=== PATIENT | female | born 2000 | race Two or more races ===

== ENCOUNTER 2023-03-27 12:21 | Emergency (ER) | payer OTHER ==
[~2023-03-27] VITALS: Ht 170.2 cm; Wt 89.8 kg
[2023-03-27 13:43] LABS: HEMATOCRIT 40.7 % (36.0-45.00); HEMOGLOBIN 13.4 g/dL (12.0-15.00); MEAN CELL VOLUME 79.7 fL (80.00-100.00); MEAN CORPUSCULAR HEMOGLOBIN 26.2 pg (27.00-32.0); MEAN CORPUSCULAR HGB CONC 32.9 g/dl (32.0-36.0); PLATELET COUNT 264 K/uL (150-450); RED BLOOD COUNT 5.11 M/uL (4.00-6.00); RED CELL DISTRIBUTION WIDTH 14.1 % (11.5-14.5)
[2023-03-27 14:02] LABS: URINE APPEARANCE Clear; URINE BILIRRUBIN Negative (NEGATIVE); URINE BLOOD Large; URINE COLOR Orange; URINE GLUCOSE Negative (NEGATIVE); URINE LEUKOCYTE Small; URINE NITRATE Negative; URINE PROTEIN Trace (NEGATIVE); URINE UROBILINOGEN 0.2 E.U./dl
[2023-03-27 14:06] LABS: URINE BACTERIA 178.8 uL (0.0-1933); URINE EPITHELIAL CELLS 32.1 uL (0.0-38.8); URINE RBC 518.6 uL (0.0-20.8); URINE WBC 69.7 uL (0.0-23.2)
== END 2023-03-27 15:45 | disposition home or self-care (01) ==
LOC: ER 12:21
PROVIDERS: Emergency Medicine
DX: O20.8 Other hemorrhage in early pregnancy (principal); Z3A.01 Less than 8 weeks gestation of pregnancy

== ENCOUNTER 2023-05-16 08:13 | Outpatient (CLI) | payer OTHER | END 2023-05-16 08:14 | disposition home or self-care (01) | LOC: PRENATAL 08:13 | PROVIDERS: ATTEND Obstetrics & Gynecology Maternal & Fetal Medicine | DX: O36.80X0 Pregnancy with inconclusive fetal viability, not applicable or unspecified (principal); Z36.82 Encounter for antenatal screening for nuchal translucency; Z14.8 Genetic carrier of other disease; Z3A.13 13 weeks gestation of pregnancy ==

== ENCOUNTER → 2023-06-10 | Emergency (ER) | payer OTHER ==
[~2023-06-10] VITALS: Ht 170.2 cm; Wt 80.7 kg
[~2023-06-10] MED LIST: PRENA1 TRUE CO1 EACH PO
== END | disposition left against medical advice (07) ==
LOC: ER 22:24
DX: Z53.21 Procedure and treatment not carried out due to patient leaving prior to being seen by health care provider (principal)

== ENCOUNTER 2023-07-14 15:37 | Outpatient (CLI) | payer OTHER | END 2023-07-14 15:38 | disposition home or self-care (01) | LOC: PRENATAL 15:37 | PROVIDERS: ATTEND Obstetrics & Gynecology Maternal & Fetal Medicine | DX: O35.3XX0 Maternal care for (suspected) damage to fetus from viral disease in mother, not applicable or unspecified (principal); O44.00 Complete placenta previa NOS or without hemorrhage, unspecified trimester; Z3A.21 21 weeks gestation of pregnancy ==

== ENCOUNTER 2023-09-02 13:48 | Outpatient (CLI) | payer OTHER | END 2023-09-02 13:50 | disposition home or self-care (01) | LOC: PRENATAL 13:48 | PROVIDERS: ATTEND Obstetrics & Gynecology Maternal & Fetal Medicine | DX: O26.849 Uterine size-date discrepancy, unspecified trimester (principal); Z3A.28 28 weeks gestation of pregnancy ==

== ENCOUNTER 2023-09-03 18:55 | Outpatient (CLI) | payer OTHER ==
[~2023-09-03] VITALS: Ht 170.2 cm; Wt 81.6 kg
[2023-09-03] MEDS ORDERED: RINGERS SOLUTION,LACTATED 1,000 ML IV SCH (19:45)
[2023-09-03 20:31] LABS: HEMATOCRIT 33.6 % (36.0-45.00); HEMOGLOBIN 11.7 g/dL (12.0-15.00); MEAN CELL VOLUME 81.8 fL (80.00-100.00); MEAN CORPUSCULAR HEMOGLOBIN 28.5 pg (27.00-32.0); MEAN CORPUSCULAR HGB CONC 34.9 g/dl (32.0-36.0); PLATELET COUNT 204 K/uL (150-450); RED BLOOD COUNT 4.11 M/uL (4.00-6.00); RED CELL DISTRIBUTION WIDTH 14.1 % (11.5-14.5)
== END 2023-09-04 14:12 | disposition home or self-care (01) ==
LOC: OBS/DEL 18:55
PROVIDERS: Obstetrics & Gynecology; ATTEND Obstetrics & Gynecology
DX: O26.893 Other specified pregnancy related conditions, third trimester (principal); Z3A.28 28 weeks gestation of pregnancy; Z91.81 History of falling

== ENCOUNTER 2024-04-22 14:29 | Emergency (ER) | payer OTHER ==
[~2024-04-22] VITALS: Ht 165.1 cm; Wt 77.1 kg
[~2024-04-22 14:29] MED LIST changes: +IBUPROFEN800 MG PO; +SURFAK240 M1 PO
[2024-04-22 15:39] VITALS: BP 104/87; O2SAT 99
[2024-04-22 16:45] LABS: HEMATOCRIT 35.7 % (36.0-45.00); HEMOGLOBIN 11.9 g/dL (12.0-15.00); MEAN CELL VOLUME 74.8 fL (80.00-100.00); MEAN CORPUSCULAR HGB CONC 33.4 g/dl (32.0-36.0); PLATELET COUNT 210 K/uL (150-450); RED BLOOD COUNT 4.78 M/uL (4.00-6.00); RED CELL DISTRIBUTION WIDTH 16.6 % (11.5-14.5)
== END 2024-04-22 18:15 | disposition home or self-care (01) ==
LOC: ER 14:31
PROVIDERS: Emergency Medicine
DX: B34.9 Viral infection, unspecified (principal); Z20.822 Contact with and (suspected) exposure to COVID-19; Z91.013 Allergy to seafood

== ENCOUNTER 2024-11-02 10:20 | Emergency (ER) | payer OTHER ==
[~2024-11-02] VITALS: Ht 170.2 cm; Wt 89.8 kg
[2024-11-02 11:50] LABS: BASO % 0.4 % (0.1-1.2); EOS % 2.6 % (0.7-7.0); HEMATOCRIT 37.6 % (34.1-44.9); HEMOGLOBIN 12.6 g/dL (11.2-15.7); LYMPH # 1.98 (1.18-3.74); LYMPH % 19.4 % (19.3-53.1); MEAN CORPUSCULAR HEMOGLOBIN 26.1 pg (25.6-32.2); MONO % 5.7 % (4.7-12.5); NEUT # 7.33 (1.56-6.13); NEUT % 71.6 % (34.0-71.1); PLATELET COUNT 285 K/uL (163-369); RED BLOOD COUNT 4.83 M/uL (3.93-5.22); RED CELL DISTRIBUTION WIDTH 14.4 % (11.6-14.4)
[2024-11-02 11:51] LABS: EOS # 0.27 (0.04-0.54); MONO # 0.58 (0.24-0.82)
[2024-11-02 12:42] LABS: URINE APPEARANCE Cloudy; URINE BILIRRUBIN Negative (NEGATIVE); URINE BLOOD Large; URINE COLOR Orange; URINE GLUCOSE Negative (NEGATIVE); URINE KETONE Negative (NEGATIVE); URINE LEUKOCYTE Small; URINE NITRATE Negative; URINE PROTEIN 30 (NEGATIVE); URINE UROBILINOGEN 0.2 E.U./dl
[2024-11-02 12:47] LABS: URINE BACTERIA 954.7 uL (0.0-1933); URINE EPITHELIAL CELLS 15.8 uL (0.0-38.8); URINE RBC 9553.5 uL (0.0-20.8); URINE WBC 75.7 uL (0.0-23.2)
== END 2024-11-02 14:51 | disposition home or self-care (01) ==
LOC: ER 10:27
PROVIDERS: General Practice
DX: O20.8 Other hemorrhage in early pregnancy (principal); Z3A.01 Less than 8 weeks gestation of pregnancy; Z91.013 Allergy to seafood

== ENCOUNTER 2024-11-03 08:55 | Emergency (ER) | payer OTHER ==
[~2024-11-03] VITALS: Ht 170.2 cm; Wt 89.8 kg
[2024-11-03 11:26] LABS: BASO % 0.3 % (0.1-1.2); EOS # 0.24 (0.04-0.54); EOS % 2.3 % (0.7-7.0); HEMATOCRIT 39.8 % (34.1-44.9); HEMOGLOBIN 13.2 g/dL (11.2-15.7); LYMPH # 2.06 (1.18-3.74); LYMPH % 19.8 % (19.3-53.1); MEAN CORPUSCULAR HEMOGLOBIN 25.7 pg (25.6-32.2); MONO # 0.65 (0.24-0.82); MONO % 6.3 % (4.7-12.5); NEUT # 7.37 (1.56-6.13); NEUT % 70.8 % (34.0-71.1); PLATELET COUNT 275 K/uL (163-369); RED BLOOD COUNT 5.14 M/uL (3.93-5.22); RED CELL DISTRIBUTION WIDTH 14.3 % (11.6-14.4)
[2024-11-03 11:55] LABS: ALBUMIN 3.7 gm/dL (3.4-5.0); BILIRUBIN TOTAL 0.31 mg/dL (0.3-1.2); CALCIUM 8.9 mg/dL (8.5-10.1); CREATININE SERUM 0.71 mg/dL (0.55-1.02); GFR 102.94; GLOBULINA 4.2 G/DL (2.4-3.5); POTASSIUM 4.69 mEq/L (3.5-5.1); TOTAL PROTEIN 7.9 gm/dL (6.4-8.2)
== END 2024-11-03 13:09 | disposition home or self-care (01) ==
LOC: ER 09:12
DX: O20.8 Other hemorrhage in early pregnancy (principal); Z3A.01 Less than 8 weeks gestation of pregnancy; Z91.013 Allergy to seafood